=== PATIENT | female | born 1995 | race Caucasian/White ===

== ENCOUNTER 2017-01-15 16:26 | Emergency (ER) | payer BC, OTHER ==
[~2017-01-15] VITALS: Ht 165.1 cm; Wt 89.0 kg
[2017-01-15 16:36] VITALS: Ht 165.1 cm; Wt 89.0 kg
[2017-01-15] MEDS ORDERED: METHYLPREDNISOLONE 125 MG INJ IM STA (17:26)
[2017-01-15] MEDS ORDERED: EPIN0.3P4 INJ (17:28)
[2017-01-15] MEDS ORDERED: BEN50 PO (17:28)
[2017-01-15] MEDS ORDERED: PRED20TA PO (17:28)
--- NOTE | 2017-01-15 17:36 | ERD ---
ER Documentation Chief Complaint Date/Time DATE: 01/15/17 TIME: 17:36 Chief Complaint SAYS HAS AR, NO RASH , SPEAKING IN FULL SENTENCES HPI This is a 21-year-old female presenting to the emergency department stating that she had an allergic reaction around 1:30 PM after she ate shrimp. Patient states that she has had lip swelling, throat felt itchy and was difficult for her to breathe after she ate shrimp and she took Benadryl 10 minutes later which gave her relief. Her only complaint at this moment is that her skin on her abdomen is itchy. Patient denies any allergies but states that she has had shrimp in the past however she gets itchy tongue. Patient denies any fevers, chest pain, shortness of breath ROS All systems reviewed and are negative except as per history of present illness. Medications Home Meds Active Scripts Prednisone* (Prednisone*) 20 Mg Tab, 40 MG PO DAILY for 4 Days, TAB Prov:PARVEEN MACK PA-C 01/15/17 Diphenhydramine Hcl* (Benadryl*) 50 Mg Cap, 50 MG PO Q6H Y for ITCHING/RASH, # 30 CAP Prov:PARVEEN MACK PA-C 01/15/17 Epinephrine (Epipen 2-Ismael) 0.3 Mg/0.3 Ml Pen.injctr, 1 EA INJ ONCE Y for ALLERGIC REACTION, #1 EA Prov:PARVEEN MACK PA-C 01/15/17 Allergies Allergies: Coded Allergies: No Known Allergy (Unverified , 01/15/17) PMhx/Soc Medical and Surgical Hx: pt denies Medical Hx, pt denies Surgical Hx Hx Alcohol Use: No Hx Substance Use: No Hx Tobacco Use: No Smoking Status: Never smoker Physical Exam Vitals Vital Signs Date Time Temp Pulse Resp B/P Pulse Ox O2 Delivery O2 Flow Rate FiO2 01/15/17 16:36 98.0 78 20 133/62 99 Physical Exam Const: Well-developed well-nourished no acute distress Head: Atraumatic Eyes: Normal Conjunctiva ENT: Normal External Ears, Nose and Mouth. Neck: Full range of motion..~ No meningismus. Resp: Clear to auscultation bilaterally Cardio: Regular rate and rhythm, no murmurs Abd: Soft, non tender, non distended. Normal bowel sounds Skin: No petechiae or rashes Back: No midline or flank tenderness Ext: No cyanosis, or edema Neur: Awake and alert Psych: Normal Mood and Affect Results 24 hrs Current Medications Medications (Trade) Dose Ordered Sig/Socrates Route PRN Reason Start Time Stop Time Status Last Admin Dose Admin Methylprednisolone Sodium Succinate (Solu-Medrol) 125 mg ONCE STAT IM 01/15/17 17:26 01/15/17 17:27 DC 01/15/17 17:30 Procedures/MDM This is a 21-year-old female presenting to the emergency department stating that she had an allergic reaction after she ate shrimp around 4 hours prior to being seen. Patient states that she had swelling in her lips and she has difficulty breathing and it has resolved when she took Benadryl. Patient still complains of itchiness on her abdomen without any evidence of rashes. Patient' s airways are intact, she is breathing well on room air. No evidence of anaphylaxis. In the ED patient was given Solu-Medrol and a prescription for prednisone and Benadryl. I have given her prescription for EpiPen just in case this happens again. I discussed with patient to follow-up with her primary care physician to get allergy patch testing. Discussed return to the ER for any worsening signs or symptoms. Patient understands and agrees to with this plan. Patient stable for discharge for home Departure Diagnosis: Primary Impression: Allergic reaction Condition: Stable Patient Instructions: First Aid: Allergic Reactions, When Your Child Has Hives (Urticaria) or Angioedema Additional Instructions: FOLLOW UP WITH YOUR PRIMARY CARE PHYSICIAN TOMORROW.Return to this facility if you are not improving as expected. Take all medicines as directed. Return to this facility if you are not improving as expected. You have been given a medicine which may cause drowsiness.DO NOT DRIVE OR OPERATE DANGEROUS MACHINERY while taking this medicine! PARVEEN MACK PA-C January 15, 2017 17:36
== END 2017-01-15 18:01 | disposition home or self-care (01) ==
LOC: FTE 16:26
DX: T78.1XXA Other adverse food reactions, not elsewhere classified, initial encounter (principal)
CPT/HCPCS: 96372; 99284; J2930